=== PATIENT | male | born 1995 | race African-American/Black ===

== ENCOUNTER 2020-08-31 17:50 | Emergency (ER) | payer MEDICAID, OTHER ==
[~2020-08-31] VITALS: Ht 162.6 cm; Wt 68.9 kg
[2020-08-31 20:17] VITALS: BP 122/72
[2020-08-31] MEDS ORDERED: LIDOCAINE 1% HCL (LOCAL ANESTH.) INJ 20ML MDV ID ONE (20:30)
== END 2020-08-31 20:52 | disposition home or self-care (01) ==
LOC: ER 17:50
DX: L03.012 Cellulitis of left finger (principal); L02.512 Cutaneous abscess of left hand
CPT/HCPCS: 10060; 99283; J2001

== ENCOUNTER 2021-05-07 21:51 | Emergency (ER) | payer MEDICAID ==
[~2021-05-07] VITALS: Ht 167.6 cm; Wt 79.4 kg
[2021-05-08 00:07] VITALS: BP 119/80
== END 2021-05-08 00:16 | disposition home or self-care (01) ==
LOC: ER 21:51
DX: K59.00 Constipation, unspecified (principal)